=== PATIENT | female | born 1965 | race Caucasian/White ===

== ENCOUNTER 2023-09-28 09:00 | Outpatient (RCR) | payer OTHER, SELFPAY ==
[2023-08-31 09:03] VITALS: BP 193/103; PULSE 71; RESP 20; TEMP 36.2; BMI 49.4
--- NOTE | 2023-08-31 10:23 | HP.PCM_ITS ---
History of Present Illness Date of Service: 08/31/23 Chief Complaint: Swelling and edema of the lower extremities bilaterally History of Wound: This is a 58-year-old female with a long history of lower extremity venous disease. She presents with chronic swelling and edema in both lower extremities. The patient has previously undergone bilateral endovenous laser ablation procedures in [place] in 2015 and 2017. Her current presentation is due to pain associated with the swelling and edema in her lower extremities, with the worst pain located in the right pretibial area. The patient states it richardson. The patient sleeps on a flat mattress at night. n she is active. She is morbidly obese. Her BMI is 49.4. 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 She denies a history of thrombophlebitis. She indicates that the swelling is worse as the day progresses. FORMERLY [facility], [facility] Medical History (Updated 08/31/23 @ 10:[address] Charles Sage MD) Chronic venous insufficiency GERD (gastroesophageal reflux disease) Hyperlipidemia Left leg swelling Leg edema, left Leg edema, right Leg pain, anterior Lipodermatosclerosis Morbid obesity due to excess calories Right leg swelling no medical history (The patient has a history of hyperlipidemia and gastroesophageal reflux disease. Her history is otherwise negative for myocardial infarction, congestive heart failure, hypertension, diabetes mellitus, cerebrovascular accident, cancer, renal disease, pulmonary disease, and thyroid disease.) Home Medications cephalexin 250 mg capsule 250 mg PO BID 08/31/23 [History Last Taken Unknown] furosemide 20 mg tablet (Lasix) 20 mg PO DAILY 08/31/23 [History Last Taken Unknown] metoprolol succinate 25 mg tablet,extended release 24 hr (Toprol XL) 25 mg PO DAILY 08/31/23 [History Last Taken Unknown] vit D3-folic acid-vit B2-B6-B12 2,000 unit-800 mcg-0.32 mg tablet tab PO 08/31/23 [History Last Taken Unknown] Allergy/AdvReac Type Severity Reaction Status Date / Time bendryl AdvReac Unknown PT UNSURE Uncoded 08/31/23 09:52 OF REACTION Social History Smoking Status: Never smoker Vital Signs Vital Signs Vital Signs: 08/31/23 09:03 Temperature 97.1 F L Temperature Source Temporal Pulse Rate 71 Respiratory Rate 20 H Blood Pressure 193/103 H Blood Pressure Mean 133 Blood Pressure Source Monitor Weight Weight: 325 lb 8.037 oz Body Mass Index (BMI) 49.4 Physical Exam Const alert, oriented x3, no apparent distress and well nourished Constitutional Narrative: The patient is morbidly obese, with a BMI of 49.4 General Appearance: cooperative, comfortable, well kempt and well developed Orientation / Consciousness: awake, oriented to person, oriented to place and oriented to time Exam Limitations: no limitations HEENT normocephalic and head/scalp atraumatic Eyes PERRL and EOMs intact bilaterally General Eye: normal appearance of both eyes Neck full ROM Resp normal respiratory effort, normal air movement, no retractions and no use of accessory muscles Effort and Inspection: able to speak in complete sentences Skin Wound Narrative: There are no open wounds or ulcerations in the patient's lower extremities bilaterally. However, swelling and edema are noted bilaterally. Circumference measurements are documented elsewhere. Lipodermatosclerosis and hyperpigmentation are noted in the gaiter areas bilaterally. Scattered telangiectasias are noted as well. Neuro oriented x3, CN's II-XII intact bilaterally and moves all extremities Sensorium / Orientation: awake, alert, oriented to person, oriented to place and oriented to time Debridement Note Debridement Note No debridement was completed: No debridement was completed today (There are no open wounds or ulcerations.) Post-Debridement Measurements and Additional Note: Post-Debridement Measurements/Treatment - Nurse 1 - General Ulcer Assessment Start: 08/31/23 09:02 Freq: Status: Active Protocol: AGAPITO Activity Type Activity Date Activity User E-sign Co-sign Detail Recorded Client Recorded Date Recorded By Document 08/31/23 09:03 Desktop 08/31/23 09:18 DL 08/31/23 09:03 - Today's Visit Information Type of service Initial Visit Arrival Mode Ambulatory Transfer Assistance None Patient Identification Verified (Name & Yes ) Patient Requires Transmission-Based No Precautions Height and Weight Height 5 ft 8 in Weight 325 lb 8.037 oz Weight in Pounds 325.5 lbs Body Mass Index (BMI) 49.4 BMI Classification Obese BSA - González 2.51 Vital Signs Temperature (97.8 F-99.1 F) 97.1 F L Temperature Source Temporal Pulse Rate (60-100) 71 Pulse Location Monitor Respiratory Rate (12-18) 20 H Respiratory rate source Observation Blood Pressure (90/60-120/80) 193/103 H Blood Pressure Mean 133 Source Monitor History Since Last Visit- (Skip if this is Patient's initial visit) Left Footwear Regular Shoe Right Footwear Regular Shoe Pain Scale: 0-10 Numeric Is Patient Pain Free? Yes Lower Extremity Assessment/ Foot Assessment/ Toe Nail Assessment Left -Posterior Tibial Palpable Yes -Posterior Tibial Doppler Multiphasic -Dorsalis Pedis Palpable Yes -Dorsalis Pedis Doppler Multiphasic -Extremity Color Hemosiderin -Hair Growth on Legs No -Hair Growth on Toes No -Capillary Refill Less than 3 Seconds -Dependent Rubor No -Blanched when Elevated No -Lipodermatosclerosis No -Other Deformity No -Prior Foot Ulcer No -Charcot Joint No -Prior Amputation No -Thick Yes -Discolored Yes -Deformed Yes -Improper Length & Hygeine No Right -Posterior Tibial Palpable Yes -Posterior Tibial Doppler Multiphasic -Dorsalis Pedis Palpable Yes -Dorsalis Pedis Doppler Multiphasic -Extremity Color Hemosiderin -Hair Growth on Legs No -Hair Growth on Toes No -Temperature of Extremity Warm -Dependent Rubor No -Blanched when Elevated No -Lipodermatosclerosis No -Other Deformity No -Prior Foot Ulcer No -Charcot Joint No -Prior Amputation No -Thick Yes -Discolored Yes -Deformed Yes -Improper Length & Hygeine No Communication Assessment Preferred language Montenegrin Able to Read Yes Able to Write Yes Right Hearing Abillity Normal Left Hearing Abillity Normal Visual Assistive Devices Glasses Teaching Assessment Preferences Verbal,Written, Demonstration Barriers to Learning None Readiness To Learn Good Willingness to Engage in Self Management Med Activies Readiness to Engage in Self Management Med Activities Anxiety Level Calm Cooperation Cooperative Perception Coherent Interest in Health Problem Asks Questions Education Importance Acknowledges Need Does Patient Smoke tobacco or other No substances Smoking Status Never smoker Is Patient Diabetic No Functional Assessment Recent Decline in Ability to Perform Denies Any Declines Culture/Oriental Orthodox/Cable Coverer Cultural/Oriental Orthodox Needs that may affect No Treatment Plan Would you allow our hospital floor covering printer assistant to No meet you for the purpose of spiritual/ emotional support? WC - Nurse 1 - General Ulcer Measurement Start: 08/31/23 09:02 Freq: Status: Active Protocol: Activity Type Activity Date Activity User E-sign Co-sign Detail Recorded Client Recorded Date Recorded By Document 08/31/23 09:03 DL Desktop 08/31/23 09:18 DL 08/31/23 09:03 Wound Center Nurse 1 Right Calf (cm) 53 Right Ankle (cm) 31 Left Calf (cm) 53 Left Ankle (cm) 31.4 - Nurse 3 - General Ulcer D/C NN Start: 08/31/23 09:02 Freq: Status: Active Protocol: Activity Type Activity Date Activity User E-sign Co-sign Detail Recorded Client Recorded Date Recorded By Document 08/31/23 09:43 GM Desktop 08/31/23 09:48 GM 08/31/23 09:43 Wound Care Center Nurse 3 LLE -Lotion applied to leg before No compression wrap -Tubular Bandage Double Layer -Size of Tubigrip Used Size F -Size F ($) 2 RLE -Lotion applied to leg before No compression wrap -Tubular Bandage Double Layer -Size of Tubigrip Used Size F -Size F ($) 2 Pain Scale: 0-10 Numeric Is Patient Pain Free? Yes Teaching: Wound Center Compression -Person Taught Patient -Teaching Method Discussion, Demonstration -Response to teaching Verbalize understanding WC - Visit Discharge Discharge Condition Stable Ambulatory Status Ambulatory Transportation Private Auto Medication Reconcilliation completed & No provided to patient/care provider Assessment/Plan Assessment/Plan (1) Chronic venous insufficiency: CODE(S): I87.2 - Venous insufficiency (chronic) (peripheral) (2) Right leg swelling: CODE(S): M79.89 - Other specified soft tissue disorders (3) Left leg swelling: CODE(S): M79.89 - Other specified soft tissue disorders (4) Leg edema, right: CODE(S): R60.0 - Localized edema (5) Leg edema, left: CODE(S): R60.0 - Localized edema (6) Leg pain, anterior: CODE(S): M79.606 - Pain in leg, unspecified QUALIFIERS: Laterality: right Qualified Code(s): M79.604 - Pain in right leg (7) Lipodermatosclerosis: CODE(S): M79.3 - Panniculitis, unspecified (8) Morbid obesity due to excess calories: CODE(S): E66.01 - Morbid (severe) obesity due to excess calories (9) Hyperlipidemia: CODE(S): E78.5 - Hyperlipidemia, unspecified (10) GERD (gastroesophageal reflux disease): CODE(S): K21.9 - Gastro-esophageal reflux disease without esophagitis PLAN: Plan This is a 58-year-old female who presented with swelling and edema in both lower extremities, associated with pain. Conservative treatment measures have been discussed with the patient in detail. She is to elevate her lower extremities is much as possible. Elevation is to be to heart level or higher. She is to continue sleeping on a flat mattress at night. Leg elevation is to be implemented even during daytime hours. Prolonged idle sitting has been discouraged. Activity has been encouraged. Weight loss has also been recommended. We are to implement compression to the lower extremities bilaterally by means of Tubigrip's of 30 to 40 mmHg compression. Over a period of several weeks, once the swelling has been minimized, it is anticipated that the patient will be transitioned to the use of graduated compression stockings or CircAid Velcro compression garments. It is likely that we will obtain a venous duplex examination in the near future. The patient is to return in 1 week for reevaluation. Total time: 24 minutes
[2023-09-07 08:13] VITALS: BP 178/72; PULSE 69; RESP 18; TEMP 35.9; BMI 49.4
--- NOTE | 2023-09-07 08:24 | HP.PCM_ITS ---
History of Present Illness Date of Service: 09/07/23 Chief Complaint: Swelling and edema of the lower extremities bilaterally History of Wound: This is a 58-year-old female with a long history of lower extremity venous disease. She presents with chronic swelling and edema in both lower extremities. The patient has previously undergone bilateral endovenous laser ablation procedures in [place] in 2015 and 2017. Her current presentation is due to pain associated with the swelling and edema in her lower extremities, with the worst pain located in the right pretibial area. The patient states it richardson. The patient sleeps on a flat mattress at night. n she is active. She is morbidly obese. Her BMI is 49.4. 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 She denies a history of thrombophlebitis. She indicates that the swelling is worse as the day progresses. [facility] Medical History Chronic venous insufficiency GERD (gastroesophageal reflux disease) Hyperlipidemia Left leg swelling Leg edema, left Leg edema, right Leg pain, anterior Lipodermatosclerosis Morbid obesity due to excess calories Right leg swelling Medical History no medical history Home Medications cephalexin 250 mg capsule 250 mg PO BID 08/31/23 [History Last Taken Unknown] furosemide 20 mg tablet (Lasix) 20 mg PO DAILY 08/31/23 [History Last Taken Unknown] metoprolol succinate 25 mg tablet,extended release 24 hr (Toprol XL) 25 mg PO DAILY 08/31/23 [History Last Taken Unknown] vit D3-folic acid-vit B2-B6-B12 2,000 unit-800 mcg-0.32 mg tablet tab PO 08/31/23 [History Last Taken Unknown] Allergy/AdvReac Type Severity Reaction Status Date / Time bendryl AdvReac Unknown PT UNSURE Uncoded 08/31/23 09:52 OF REACTION Social History Smoking Status: Never smoker Vital Signs Vital Signs Vital Signs: 09/07/23 08:13 Temperature 96.6 F L Temperature Source Temporal Pulse Rate 69 Respiratory Rate 18 Blood Pressure 178/72 H Blood Pressure Mean 107 Blood Pressure Source Monitor Blood Pressure Position Semi-Fowlers Blood Pressure Location Left Arm Weight Weight: 325 lb 8.037 oz Body Mass Index (BMI) 49.4 Physical Exam Const alert, oriented x3, no apparent distress and well nourished Constitutional Narrative: The patient is morbidly obese, with a BMI of 49.4 General Appearance: cooperative, comfortable, well kempt and well developed Orientation / Consciousness: awake, oriented to person, oriented to place and oriented to time Exam Limitations: no limitations HEENT normocephalic and head/scalp atraumatic Eyes PERRL and EOMs intact bilaterally General Eye: normal appearance of both eyes Neck full ROM Resp normal respiratory effort, normal air movement, no retractions and no use of accessory muscles Effort and Inspection: able to speak in complete sentences Skin Wound Narrative: There are no open wounds or ulcerations in the patient's lower extremities bilaterally. However, swelling and edema are noted bilaterally. The swelling and edema in the patient's lower extremities has improved since the patient's prior visit. Circumference measurements are documented elsewhere. Lipodermatosclerosis and hyperpigmentation are noted in the gaiter areas bilaterally. Scattered telangiectasias are noted as well. Several small superficial veins are noted on the right pretibial surface, which are tender. Neuro oriented x3, CN's II-XII intact bilaterally and moves all extremities Sensorium / Orientation: awake, alert, oriented to person, oriented to place and oriented to time Debridement Note Debridement Note No debridement was completed: No debridement was completed today (There are no open wounds or ulcerations.) Post-Debridement Measurements and Additional Note: Post-Debridement Measurements/Treatment WC - Nurse 1 - General Ulcer Assessment Start: 08/31/23 09:02 Freq: Status: Active Protocol: AGAPITO Activity Type Activity Date Activity User E-sign Co-sign Detail Recorded Client Recorded Date Recorded By Document 08/31/23 09:03 DL Desktop 08/31/23 09:18 DL Document 09/07/23 08:13 RB Desktop 09/07/23 08:15 RB 08/31/23 09/07/23 09:03 08:13 - Today's Visit Information Type of service Initial Visit Follow-up Visit (Physician/LINE ASSEMBLY UTILITY WORKER ) Arrival Mode Ambulatory Ambulatory Transfer Assistance None None Patient Identification Verified (Name & Yes Yes ) Patient Requires Transmission-Based No No Precautions Height and Weight Height 5 ft 8 in Weight 325 lb 8.037 oz Weight in Pounds 325.5 lbs Body Mass Index (BMI) 49.4 49.4 BMI Classification Obese Obese BSA - González 2.51 Vital Signs Temperature (97.8 F-99.1 F) 97.1 F L 96.6 F L Temperature Source Temporal Temporal Pulse Rate (60-100) 71 69 Pulse Location Monitor Monitor Respiratory Rate (12-18) 20 H 18 Respiratory rate source Observation Observation Blood Pressure (90/60-120/80) 193/103 H 178/72 H Blood Pressure Mean 133 107 Source Monitor Monitor Position Semi-Fowlers Blood Pressure Location Left Arm History Since Last Visit- (Skip if this is Patient's initial visit) Have you changed medications since your No last visit? Any new allergies or adverse reactions No Had a fall/change in ADL's that may No increase risk of falls Signs or symptoms of abuse and/or No neglect since last visit Have you been in the hospital since your No last visit? Has dressing in place as prescribed Yes Has compression in place as prescribed Yes Has offloadiing in place as prescribed No Experienced any changes in pain level or No management Left Footwear Regular Shoe Regular Shoe Right Footwear Regular Shoe Regular Shoe Pain Scale: 0-10 Numeric Is Patient Pain Free? Yes Yes Lower Extremity Assessment/ Foot Assessment/ Toe Nail Assessment Left -Posterior Tibial Palpable Yes -Posterior Tibial Doppler Multiphasic -Dorsalis Pedis Palpable Yes -Dorsalis Pedis Doppler Multiphasic -Extremity Color Hemosiderin -Hair Growth on Legs No -Hair Growth on Toes No -Capillary Refill Less than 3 Seconds -Dependent Rubor No -Blanched when Elevated No -Lipodermatosclerosis No -Other Deformity No -Prior Foot Ulcer No -Charcot Joint No -Prior Amputation No -Thick Yes -Discolored Yes -Deformed Yes -Improper Length & Hygeine No Right -Posterior Tibial Palpable Yes -Posterior Tibial Doppler Multiphasic -Dorsalis Pedis Palpable Yes -Dorsalis Pedis Doppler Multiphasic -Extremity Color Hemosiderin -Hair Growth on Legs No -Hair Growth on Toes No -Temperature of Extremity Warm -Dependent Rubor No -Blanched when Elevated No -Lipodermatosclerosis No -Other Deformity No -Prior Foot Ulcer No -Charcot Joint No -Prior Amputation No -Thick Yes -Discolored Yes -Deformed Yes -Improper Length & Hygeine No Communication Assessment Preferred language Romansh Able to Read Yes Able to Write Yes Right Hearing Abillity Normal Left Hearing Abillity Normal Visual Assistive Devices Glasses Teaching Assessment Preferences Verbal,Written, Demonstration Barriers to Learning None Readiness To Learn Good Willingness to Engage in Self Management Med Activies Readiness to Engage in Self Management Med Activities Anxiety Level Calm Cooperation Cooperative Perception Coherent Interest in Health Problem Asks Questions Education Importance Acknowledges Need Does Patient Smoke tobacco or other No substances Smoking Status Never smoker Is Patient Diabetic No Functional Assessment Recent Decline in Ability to Perform Denies Any Declines Culture/Mormon/Pinsetter Mechanic Helper Cultural/Mormon Needs that may affect No Treatment Plan Would you allow our [facility] acute care clinical nurse specialist to No meet you for the purpose of spiritual/ emotional support? - Nurse 1 - General Ulcer Measurement Start: 08/31/23 09:02 Freq: Status: Active Protocol: Activity Type Activity Date Activity User E-sign Co-sign Detail Recorded Client Recorded Date Recorded By Document 08/31/23 09:03 DL Desktop 08/31/23 09:18 DL Document 09/07/23 08:13 RB Desktop 09/07/23 08:15 RB 08/31/23 09/07/23 09:03 08:13 Wound Center Nurse 1 Lower Limb Edema Present Yes Right Calf (cm) 53 50 Right Ankle (cm) 31 29.5 Left Calf (cm) 53 53 Left Ankle (cm) 31.4 29.5 - Nurse 3 - General Ulcer D/C NN Start: 08/31/23 09:02 Freq: Status: Active Protocol: Activity Type Activity Date Activity User E-sign Co-sign Detail Recorded Client Recorded Date Recorded By Document 08/31/23 09:43 GM Desktop 08/31/23 09:48 GM 08/31/23 09:43 Wound Care Center Nurse 3 LLE -Lotion applied to leg before No compression wrap -Tubular Bandage Double Layer -Size of Tubigrip Used Size F -Size F ($) 2 RLE -Lotion applied to leg before No compression wrap -Tubular Bandage Double Layer -Size of Tubigrip Used Size F -Size F ($) 2 Pain Scale: 0-10 Numeric Is Patient Pain Free? Yes Teaching: Wound Center Compression -Person Taught Patient -Teaching Method Discussion, Demonstration -Response to teaching Verbalize understanding - Visit Discharge Discharge Condition Stable Ambulatory Status Ambulatory Transportation Private Auto Medication Reconcilliation completed & No provided to patient/care provider Assessment/Plan Assessment/Plan (1) Chronic venous insufficiency: CODE(S): I87.2 - Venous insufficiency (chronic) (peripheral) (2) Right leg swelling: CODE(S): M79.89 - Other specified soft tissue disorders (3) Left leg swelling: CODE(S): M79.89 - Other specified soft tissue disorders (4) Leg edema, right: CODE(S): R60.0 - Localized edema (5) Leg edema, left: CODE(S): R60.0 - Localized edema (6) Leg pain, anterior: CODE(S): M79.606 - Pain in leg, unspecified QUALIFIERS: Laterality: right Qualified Code(s): M79.604 - Pain in right leg (7) Lipodermatosclerosis: CODE(S): M79.3 - Panniculitis, unspecified (8) Morbid obesity due to excess calories: CODE(S): E66.01 - Morbid (severe) obesity due to excess calories (9) Hyperlipidemia: CODE(S): E78.5 - Hyperlipidemia, unspecified (10) GERD (gastroesophageal reflux disease): CODE(S): K21.9 - Gastro-esophageal reflux disease without esophagitis PLAN: Plan This is a 58-year-old female who presented with swelling and edema in both lower extremities, associated with pain. Conservative treatment measures have been discussed with the patient in detail. She is to elevate her lower extremities is much as possible. Elevation is to be to heart level or higher. She is to continue sleeping on a flat mattress at night. Leg elevation is to be implemented even during daytime hours. Prolonged idle sitting has been discouraged. Activity has been encouraged. Weight loss has also been recommended. We implemented compression to the lower extremities by means of Tubigrip's, but the patient has independently transitioned to the use of graduated compression stockings of 20 to 30 mmHg, which she claims are more compressive than the Tubigrip's. We are to continue the use of graduated compression stockings on a daily basis. Tenderness in association with some small varicosities on the right pretibial surface are suspected to be due to mild superficial thrombophlebitis. Nonsteroidal anti-inflammatory medications have been recommended, and discussed with the patient. The patient's lower extremity swelling appears to have improved since her prior visit as a result of the conservative treatment measures implemented. The patient is to return in 2 weeks for reevaluation. Total time: 25 minutes
[2023-09-21 07:56] VITALS: BP 151/80; PULSE 69; RESP 18; TEMP 35.6; BMI 49.4
--- NOTE | 2023-09-21 08:36 | PCM.WC.HP ---
History of Present Illness Date of Service: 09/21/23 Chief Complaint: Swelling and edema of the lower extremities bilaterally History of Wound: This is a 58-year-old female with a long history of lower extremity venous disease. She presents with chronic swelling and edema in both lower extremities. The patient has previously undergone bilateral endovenous laser ablation procedures in [place] in 2015 and 2017. Her current presentation is due to pain associated with the swelling and edema in her lower extremities, with the worst pain located in the right pretibial area. The patient states it richardson. The patient sleeps on a flat mattress at night. n she is active. She is morbidly obese. Her BMI is 49.4. 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 She denies a history of thrombophlebitis. She indicates that the swelling is worse as the day progresses. [facility] Medical History Chronic venous insufficiency GERD (gastroesophageal reflux disease) Hyperlipidemia Left leg swelling Leg edema, left Leg edema, right Leg pain, anterior Lipodermatosclerosis Morbid obesity due to excess calories Right leg swelling Medical History no medical history Home Medications cephalexin 250 mg capsule 250 mg PO BID 08/31/23 [History Last Taken Unknown] furosemide 20 mg tablet (Lasix) 20 mg PO DAILY 08/31/23 [History Last Taken Unknown] metoprolol succinate 25 mg tablet,extended release 24 hr (Toprol XL) 25 mg PO DAILY 08/31/23 [History Last Taken Unknown] vit D3-folic acid-vit B2-B6-B12 2,000 unit-800 mcg-0.32 mg tablet tab PO 08/31/23 [History Last Taken Unknown] Allergy/AdvReac Type Severity Reaction Status Date / Time bendryl AdvReac Unknown PT UNSURE Uncoded 08/31/23 09:52 OF REACTION Social History Smoking Status: Never smoker Vital Signs Vital Signs Vital Signs: 09/21/23 07:56 Temperature 96.0 F L Temperature Source Temporal Pulse Rate 69 Respiratory Rate 18 Blood Pressure 151/80 H Blood Pressure Mean 103 Blood Pressure Source Monitor Blood Pressure Position Sitting Blood Pressure Location Left Arm Oxygen Delivery Method Room Air Weight Weight: 325 lb 8.037 oz Body Mass Index (BMI) 49.4 Physical Exam Const alert, oriented x3, no apparent distress and well nourished Constitutional Narrative: The patient is morbidly obese, with a BMI of 49.4 General Appearance: cooperative, comfortable, well kempt and well developed Orientation / Consciousness: awake, oriented to person, oriented to place and oriented to time Exam Limitations: no limitations HEENT normocephalic and head/scalp atraumatic Eyes PERRL and EOMs intact bilaterally General Eye: normal appearance of both eyes Neck full ROM Resp normal respiratory effort, normal air movement, no retractions and no use of accessory muscles Effort and Inspection: able to speak in complete sentences Skin Wound Narrative: There are no open wounds or ulcerations in the patient's lower extremities bilaterally. However, swelling and edema are noted bilaterally. The swelling and edema in the patient's lower extremities has improved since the patient's prior visit. Circumference measurements are documented elsewhere. Lipodermatosclerosis and hyperpigmentation are noted in the gaiter areas bilaterally, more on the right. Scattered telangiectasias are noted as well. Several small superficial veins are noted on the right pretibial surface, which are tender. Neuro oriented x3, CN's II-XII intact bilaterally and moves all extremities Sensorium / Orientation: awake, alert, oriented to person, oriented to place and oriented to time Debridement Note Debridement Note No debridement was completed: No debridement was completed today (There are no open wounds or ulcerations.) Post-Debridement Measurements and Additional Note: Post-Debridement Measurements/Treatment WC - Nurse 1 - General Ulcer Assessment Start: 08/31/23 09:02 Freq: Status: Active Protocol: AGAPITO Activity Type Activity Date Activity User E-sign Co-sign Detail Recorded Client Recorded Date Recorded By Document 08/31/23 09:03 DL Desktop 08/31/23 09:18 DL Document 09/07/23 08:13 RB Desktop 09/07/23 08:15 RB Document 09/21/23 07:56 MW Desktop 09/21/23 07:58 MW 08/31/23 09/07/23 09/21/23 09:03 08:13 07:56 WC - Today's Visit Information Type of service Initial Visit Follow-up Visit Follow-up Visit (Physician/BACTERIOLOGY TECHNICIAN (Physician/BACTERIOLOGY TECHNICIAN ) ) Arrival Mode Ambulatory Ambulatory Ambulatory Transfer Assistance None None None Accompanied by self Patient Identification Verified (Name & Yes Yes Yes ) Patient Requires Transmission-Based No No No Precautions Safety Precautions NA Height and Weight Height 5 ft 8 in Weight 325 lb 8.037 oz Weight in Pounds 325.5 lbs Body Mass Index (BMI) 49.4 49.4 49.4 BMI Classification Obese Obese Obese BSA - González 2.51 Vital Signs Temperature (97.8 F-99.1 F) 97.1 F L 96.6 F L 96.0 F L Temperature Source Temporal Temporal Temporal Pulse Rate (60-100) 71 69 69 Pulse Location Monitor Monitor Monitor Respiratory Rate (12-18) 20 H 18 18 Respiratory rate source Observation Observation Observation Oxygen Delivery Method Room Air Blood Pressure (90/60-120/80) 193/103 H 178/72 H 151/80 H Blood Pressure Mean 133 107 103 Source Monitor Monitor Monitor Position Semi-Fowlers Sitting Blood Pressure Location Left Arm Left Arm History Since Last Visit- (Skip if this is Patient's initial visit) Have you changed medications since your No No last visit? Any new allergies or adverse reactions No No Had a fall/change in ADL's that may No No increase risk of falls Signs or symptoms of abuse and/or No No neglect since last visit Have you been in the hospital since your No No last visit? Has dressing in place as prescribed Yes Has compression in place as prescribed Yes Yes Has offloadiing in place as prescribed No N/A Experienced any changes in pain level or No No management Left Footwear Regular Shoe Regular Shoe Regular Shoe Right Footwear Regular Shoe Regular Shoe Regular Shoe Pain Scale: 0-10 Numeric Is Patient Pain Free? Yes Yes Yes Lower Extremity Assessment/ Foot Assessment/ Toe Nail Assessment Left -Posterior Tibial Palpable Yes -Posterior Tibial Doppler Multiphasic -Dorsalis Pedis Palpable Yes -Dorsalis Pedis Doppler Multiphasic -Extremity Color Hemosiderin -Hair Growth on Legs No -Hair Growth on Toes No -Capillary Refill Less than 3 Seconds -Dependent Rubor No -Blanched when Elevated No -Lipodermatosclerosis No -Other Deformity No -Prior Foot Ulcer No -Charcot Joint No -Prior Amputation No -Thick Yes -Discolored Yes -Deformed Yes -Improper Length & Hygeine No Right -Posterior Tibial Palpable Yes -Posterior Tibial Doppler Multiphasic -Dorsalis Pedis Palpable Yes -Dorsalis Pedis Doppler Multiphasic -Extremity Color Hemosiderin -Hair Growth on Legs No -Hair Growth on Toes No -Temperature of Extremity Warm -Dependent Rubor No -Blanched when Elevated No -Lipodermatosclerosis No -Other Deformity No -Prior Foot Ulcer No -Charcot Joint No -Prior Amputation No -Thick Yes -Discolored Yes -Deformed Yes -Improper Length & Hygeine No Communication Assessment Preferred language Croatian Able to Read Yes Able to Write Yes Right Hearing Abillity Normal Left Hearing Abillity Normal Visual Assistive Devices Glasses Teaching Assessment Preferences Verbal,Written, Demonstration Barriers to Learning None Readiness To Learn Good Willingness to Engage in Self Management Med Activies Readiness to Engage in Self Management Med Activities Anxiety Level Calm Cooperation Cooperative Perception Coherent Interest in Health Problem Asks Questions Education Importance Acknowledges Need Does Patient Smoke tobacco or other No substances Smoking Status Never smoker Is Patient Diabetic No Functional Assessment Recent Decline in Ability to Perform Denies Any Declines Culture/Roman Catholic/Color Straining Bag Washer Cultural/Roman Catholic Needs that may affect No Treatment Plan Would you allow our hospital analytics leader to No meet you for the purpose of spiritual/ emotional support? WC - Nurse 1 - General Ulcer Measurement Start: 08/31/23 09:02 Freq: Status: Active Protocol: Activity Type Activity Date Activity User E-sign Co-sign Detail Recorded Client Recorded Date Recorded By Document 08/31/23 09:03 DL Desktop 08/31/23 09:18 DL Document 09/07/23 08:13 RB Desktop 09/07/23 08:15 RB Document 09/21/23 07:56 MW Desktop 09/21/23 07:58 MW 08/31/23 09/07/23 09/21/23 09:03 08:13 07:56 Wound Center Nurse 1 Lower Limb Edema Present Yes Yes Right Calf (cm) 53 50 51.5 Right Ankle (cm) 31 29.5 28.9 Left Calf (cm) 53 53 52.6 Left Ankle (cm) 31.4 29.5 29.4 LAZARUS - Nurse 3 - General Ulcer D/C NN Start: 08/31/23 09:02 Freq: Status: Active Protocol: Activity Type Activity Date Activity User E-sign Co-sign Detail Recorded Client Recorded Date Recorded By Document 08/31/23 09:43 GM Desktop 08/31/23 09:48 GM Document 09/07/23 08:28 RB Desktop 09/07/23 08:28 RB 08/31/23 09/07/23 09:43 08:28 Wound Care Center Nurse 3 LLE -Lotion applied to leg before No compression wrap -Tubular Bandage Double Layer -Size of Tubigrip Used Size F -Size F ($) 2 -Stockings Yes -Other pt own stockings bilat RLE -Lotion applied to leg before No compression wrap -Tubular Bandage Double Layer -Size of Tubigrip Used Size F -Size F ($) 2 -Stockings Yes Treatment Response Procedure Tolerated Well Pain Scale: 0-10 Numeric Is Patient Pain Free? Yes Yes Teaching: Wound Center Compression -Person Taught Patient -Teaching Method Discussion, Demonstration -Response to teaching Verbalize understanding WC - Visit Discharge Discharge Condition Stable Stable Ambulatory Status Ambulatory Ambulatory Transportation Private Auto Private Auto Medication Reconcilliation completed & No No provided to patient/care provider Clinical Summary of Care Provided Yes Assessment/Plan Assessment/Plan (1) Chronic venous insufficiency: CODE(S): I87.2 - Venous insufficiency (chronic) (peripheral) (2) Right leg swelling: CODE(S): M79.89 - Other specified soft tissue disorders (3) Left leg swelling: CODE(S): M79.89 - Other specified soft tissue disorders (4) Leg edema, right: CODE(S): R60.0 - Localized edema (5) Leg edema, left: CODE(S): R60.0 - Localized edema (6) Leg pain, anterior: CODE(S): M79.606 - Pain in leg, unspecified QUALIFIERS: Laterality: right Qualified Code(s): M79.604 - Pain in right leg (7) Lipodermatosclerosis: CODE(S): M79.3 - Panniculitis, unspecified (8) Morbid obesity due to excess calories: CODE(S): E66.01 - Morbid (severe) obesity due to excess calories (9) Hyperlipidemia: CODE(S): E78.5 - Hyperlipidemia, unspecified (10) GERD (gastroesophageal reflux disease): CODE(S): K21.9 - Gastro-esophageal reflux disease without esophagitis PLAN: Plan This is a 58-year-old female who presented with swelling and edema in both lower extremities, associated with pain. Conservative treatment measures have been discussed with the patient in detail. She is to elevate her lower extremities is much as possible. Elevation is to be to heart level or higher. She is to continue sleeping on a flat mattress at night. Leg elevation is to be implemented even during daytime hours. Prolonged idle sitting has been discouraged. Activity has been encouraged. Weight loss has also been recommended. We implemented compression to the lower extremities by means of Tubigrip's, but the patient has independently transitioned to the use of graduated compression stockings of 20 to 30 mmHg, which she claims are more compressive than the Tubigrip's. We are to continue the use of graduated compression stockings on a daily basis. Tenderness in association with some small varicosities on the right pretibial surface are suspected to be due to mild superficial thrombophlebitis. Nonsteroidal anti-inflammatory medications have been recommended, and discussed with the patient. The patient's lower extremity swelling appears to have improved since her prior visit as a result of the conservative treatment measures implemented. A venous duplex examination is to be obtained, to evaluate the venous anatomy in the patient's lower extremities. It is to be determined whether the patient may be a candidate for endovenous laser ablation. It is noted that she has previously undergone these procedures bilaterally in the past at a medical facility in [place], [place]. The patient is to return in 2 weeks for reevaluation. Total time: 24 minutes
--- NOTE | 2023-09-28 08:36 | VDLE_ITS ---
Reason For Study: Bilateral leg swelling RIGHT LEFT CFV is compressible, spontaneous, phasic, CFV is compressible, spontaneous, phasic, competent and demonstrates normal competent, and demonstrates normal augmentation. augmentation. FV is compressible, spontaneous, phasic, FV is compressible, spontaneous, phasic, competent and demonstrates normal competent and demonstrates normal augmentation. augmentation. POP V is compressible, spontaneous, phasic, POP V is compressible, spontaneous, phasic, competent and demonstrates normal competent and demonstrates normal augmentation. augmentation. T/P Trunk is compressible. T/P Trunk is compressible. PTV is compressible. PTV is compressible. RT PerV is compressible. LT PerV is compressible. SFJ is INCOMPETENT and measures 0.91 x 1.00 SFJ is INCOMPETENT and measures 0.80 x 0.88 cm. cm. Varicose vein cluster noted at right groin. ASV from groin is INCOMPETENT for greater GSV and SSV prox-mid absent s/p previous than 0.5 seconds and measures 0.71 x 0.77 cm. EVLA. ASV from groin wraps posteriorly to SSV at SSV mid and dist is INCOMPETENT for greater mid calf. than 0.5 seconds and measures 0.27 x 0.24 cm. ASV prox thigh off of ASV groin is INCOMETEMT Multiple varicose veins are noted on the for greater than 0.5 seconds and measures guido. 0.41 x 0.40 cm. Procedure GSV from junction to mid calf absent s/p This is a venous duplex using B-mode, color previous EVLA. flow and spectral Doppler. SSV at junction is competent and measures Exam performed in department. 0.22 x 0.18 cm. Patient was scanned in reverse Trendelenburg position during reflux assessment. VL/Venous Duplex US - Fernando Extrem Interpretation Summary Deep veins of the lower extremities are bilaterally patent and compressible seg mentally. There is no evidence of deep vein thrombosis on either side. Valvular competence appears in tact within the proximal deep venous systems bilaterally. Sapheno-femoral junctions are bilater ally incompetent . The right great saphenous vein is absent, consistent with a prior endothermal a blation procedure. The left great saphenous vein is absent, consistent with a prior endothermal ab lation procedure. The right small saphenous vein is absent from the right sapheno-popliteal junction to the mid-calf, but patent and incompetent more distally. The left small saphenous vein is patent a nd competent. The left anterior accessory saphenous vein is patent and incompetent. An incompeten t branch of the left anterior accessory saphenous vein appears to communicate with the left small sa phenous vein in the mid-calf. Varicosities are noted in the right groin and right pre-tibial area. Ordering Physician: Charles Sage Referring Physician: Alise Chauhan Performed By: Hoda Card, RVT
== END 2023-10-05 15:08 | disposition home or self-care (01) ==
LOC: WC 09:00
PROVIDERS: PCP Nurse Practitioner Family; Referring Provider Nurse Practitioner Family; Visit Provider Surgery
DX: I87.2 Venous insufficiency (chronic) (peripheral) (principal); E66.01 Morbid (severe) obesity due to excess calories; Z68.42 Body mass index [BMI] 45.0-49.9, adult; E78.5 Hyperlipidemia, unspecified; K21.9 Gastro-esophageal reflux disease without esophagitis; R60.0 Localized edema; M79.604 Pain in right leg; M79.89 Other specified soft tissue disorders; M79.3 Panniculitis, unspecified
CPT/HCPCS: 93970; 99213; G0463

== ENCOUNTER 2023-10-05 07:57 | Outpatient (RCR) | payer OTHER, SELFPAY ==
[2023-10-05 07:59] VITALS: BP 136/70; PULSE 69; TEMP 36.2
--- NOTE | 2023-10-05 08:37 | HP.PCM_ITS ---
History of Present Illness Date of Service: 10/05/23 Chief Complaint: Swelling and edema of the lower extremities bilaterally History of Wound: This is a 58-year-old female with a long history of lower extremity venous disease. She presents with chronic swelling and edema in both lower extremities. The patient has previously undergone bilateral endovenous laser ablation procedures in [place] in 2015 and 2017. Her current presentation is due to pain associated with the swelling and edema in her lower extremities, with the worst pain located in the right pretibial area. The patient states it richardson. The patient sleeps on a flat mattress at night. n she is active. She is morbidly obese. Her BMI is 49.4. 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 She denies a history of thrombophlebitis. She indicates that the swelling is worse as the day progresses. [facility] Medical History Chronic venous insufficiency GERD (gastroesophageal reflux disease) Hyperlipidemia Left leg swelling Leg edema, left Leg edema, right Leg pain, anterior Lipodermatosclerosis Morbid obesity due to excess calories Right leg swelling Home Medications cephalexin 250 mg capsule 250 mg PO BID 08/31/23 [History Last Taken Unknown] furosemide 20 mg tablet (Lasix) 20 mg PO DAILY 08/31/23 [History Last Taken Unknown] metoprolol succinate 25 mg tablet,extended release 24 hr (Toprol XL) 25 mg PO DAILY 08/31/23 [History Last Taken Unknown] vit D3-folic acid-vit B2-B6-B12 2,000 unit-800 mcg-0.32 mg tablet tab PO 08/31/23 [History Last Taken Unknown] Allergy/AdvReac Type Severity Reaction Status Date / Time bendryl AdvReac Unknown PT UNSURE Uncoded 08/31/23 09:52 OF REACTION Social History Smoking Status: Never smoker Vital Signs Vital Signs Vital Signs: 10/05/23 07:59 Temperature 97.1 F L Temperature Source Temporal Pulse Rate 69 Blood Pressure 136/70 H Blood Pressure Mean 92 Blood Pressure Source Monitor Blood Pressure Position Sitting Blood Pressure Location Left Arm Oxygen Delivery Method Room Air Physical Exam Const alert, oriented x3, no apparent distress and well nourished Constitutional Narrative: The patient is morbidly obese, with a BMI of 49.4 General Appearance: cooperative, comfortable, well kempt and well developed Orientation / Consciousness: awake, oriented to person, oriented to place and oriented to time Exam Limitations: no limitations HEENT normocephalic and head/scalp atraumatic Eyes PERRL and EOMs intact bilaterally General Eye: normal appearance of both eyes Neck full ROM Resp normal respiratory effort, normal air movement, no retractions and no use of accessory muscles Effort and Inspection: able to speak in complete sentences Skin Wound Narrative: There are no open wounds or ulcerations in the patient's lower extremities bilaterally. However, slight swelling and edema are noted bilaterally. The swelling and edema in the patient's lower extremities has improved since the patient's prior visit. Circumference measurements are documented elsewhere. Lipodermatosclerosis and hyperpigmentation are noted in the gaiter areas bilaterally, more on the right. Scattered telangiectasias are noted as well. Several small superficial veins are noted on the right pretibial surface, which are tender. Neuro oriented x3, CN's II-XII intact bilaterally and moves all extremities Sensorium / Orientation: awake, alert, oriented to person, oriented to place and oriented to time Debridement Note Debridement Note No debridement was completed: No debridement was completed today (There are no open wounds or ulcerations.) Post-Debridement Measurements and Additional Note: Post-Debridement Measurements/Treatment - Nurse 1 - General Ulcer Assessment Start: 10/05/23 07:58 Freq: Status: Active Protocol: WC.LOWROSENDOT Activity Type Activity Date Activity User E-sign Co-sign Detail Recorded Client Recorded Date Recorded By Document 10/05/23 07:59 Desktop 10/05/23 08:07 10/05/23 07:59 - Today's Visit Information Type of service Follow-up Visit (Physician/CAFETERIA COOK ) Arrival Mode Ambulatory Transfer Assistance None Patient Identification Verified (Name & Yes ) Patient Requires Transmission-Based No Precautions Vital Signs Temperature (97.8 F-99.1 F) 97.1 F L Temperature Source Temporal Pulse Rate (60-100) 69 Pulse Location Monitor Oxygen Delivery Method Room Air Blood Pressure (90/60-120/80) 136/70 H Blood Pressure Mean 92 Source Monitor Position Sitting Blood Pressure Location Left Arm History Since Last Visit- (Skip if this is Patient's initial visit) Have you changed medications since your No last visit? Any new allergies or adverse reactions No Had a fall/change in ADL's that may No increase risk of falls Signs or symptoms of abuse and/or No neglect since last visit Have you been in the hospital since your No last visit? Has compression in place as prescribed Yes Has offloadiing in place as prescribed N/A Left Footwear Regular Shoe Right Footwear Regular Shoe Pain Scale: 0-10 Numeric Is Patient Pain Free? Yes WC - Nurse 1 - General Ulcer Measurement Start: 10/05/23 07:58 Freq: Status: Active Protocol: Activity Type Activity Date Activity User E-sign Co-sign Detail Recorded Client Recorded Date Recorded By Document 10/05/23 07:59 Desktop 10/05/23 08:07 10/05/23 07:59 Wound Center Nurse 1 Right Calf (cm) 50.7 Right Ankle (cm) 29.0 Left Calf (cm) 50.0 Left Ankle (cm) 29.5 Assessment/Plan Assessment/Plan (1) Chronic venous insufficiency: CODE(S): I87.2 - Venous insufficiency (chronic) (peripheral) (2) Right leg swelling: CODE(S): M79.89 - Other specified soft tissue disorders (3) Left leg swelling: CODE(S): M79.89 - Other specified soft tissue disorders (4) Leg edema, right: CODE(S): R60.0 - Localized edema (5) Leg edema, left: CODE(S): R60.0 - Localized edema (6) Leg pain, anterior: CODE(S): M79.606 - Pain in leg, unspecified QUALIFIERS: Laterality: right Qualified Code(s): M79.604 - Pain in right leg (7) Lipodermatosclerosis: CODE(S): M79.3 - Panniculitis, unspecified (8) Morbid obesity due to excess calories: CODE(S): E66.01 - Morbid (severe) obesity due to excess calories (9) Hyperlipidemia: CODE(S): E78.5 - Hyperlipidemia, unspecified (10) GERD (gastroesophageal reflux disease): CODE(S): K21.9 - Gastro-esophageal reflux disease without esophagitis PLAN: Plan This is a 58-year-old female who presented with swelling and edema in both lower extremities, associated with pain. Conservative treatment measures have been discussed with the patient in detail. She is to elevate her lower extremities is much as possible. Elevation is to be to heart level or higher. She is to continue sleeping on a flat mattress at night. Leg elevation is to be implemented even during daytime hours. Prolonged idle sitting has been discouraged. Activity has been encouraged. Weight loss has also been recommended. We implemented compression to the lower extremities by means of Tubigrip's, but the patient has independently transitioned to the use of g raduated compression stockings of 20 to 30 mmHg, which she claims are more compressive than the Tubigrip's. We are to continue the use of graduated compression stockings on a daily basis. Tenderness in association with some small varicosities on the right pretibial surface are suspected to be due to mild superficial thrombophlebitis. Nonsteroidal anti-inflammatory medications have been recommended, and discussed with the patient. The patient's lower extremity swelling appears to have improved since her prior visit as a result of the conservative treatment measures implemented. The patient's swelling is now at a minimum. Therefore, she is to be discharged. A thorough discussion has been undertaken as to the measures which are to be continued on a long-term basis. These include leg elevation, avoidance of prolonged idle sitting, active lifestyle, weight control measures, and the use of graduated compression stockings. A venous duplex examination has been obtained. The right great saphenous vein is absent due to a prior endovenous laser ablation. The right small saphenous vein is also absent in the proximal calf. The left great saphenous vein is absent. The left anterior accessory saphenous vein and an accessory saphenous vein in the left lower extremity are noted to be incompetent. These findings do not suggest that a venous ablation procedure would likely be of the patient's benefit. The patient is to be discharged, and will follow-up henceforth on an as-needed basis. Total time: 25 minutes
== END 2023-10-05 15:08 | disposition home or self-care (01) ==
LOC: WC 07:57
PROVIDERS: PCP Nurse Practitioner Family; Visit Provider Surgery
DX: I87.2 Venous insufficiency (chronic) (peripheral) (principal); E66.01 Morbid (severe) obesity due to excess calories; Z68.42 Body mass index [BMI] 45.0-49.9, adult; M79.604 Pain in right leg; E78.5 Hyperlipidemia, unspecified; K21.9 Gastro-esophageal reflux disease without esophagitis; R60.0 Localized edema; M79.89 Other specified soft tissue disorders; M79.606 Pain in leg, unspecified; M79.3 Panniculitis, unspecified
CPT/HCPCS: 99213; G0463